=== PATIENT | female | born 1980 | race African-American/Black ===

== ENCOUNTER 2020-05-02 01:48 | Emergency (ER) | payer MEDICAID ==
[~2020-05-02] VITALS: Ht 162.6 cm; Wt 62.1 kg
[2020-05-02 01:57] VITALS: BP 112/57
[2020-05-02] MEDS ORDERED: PRED50TA PO (02:17)
[2020-05-02] MEDS ORDERED: DIPH25CA83 PO (02:17)
[2020-05-02] MEDS ORDERED: FAMO-131 PO (02:22)
[2020-05-02] MEDS ORDERED: predniSONE 10 MG TABLET ONE (02:25)
[2020-05-02] MEDS ORDERED: FAMOTIDINE (20 MG) 20 MG TABLET ONE (02:25)
[2020-05-02] MEDS ORDERED: predniSONE 20 MG TABLET ONE (02:26)
[2020-05-02] MEDS ORDERED: predniSONE 50 MG TABLET PO ONE (02:30)
[2020-05-02] MEDS ORDERED: FAMOTIDINE (20 MG) 20 MG TABLET PO ONE (02:30)
== END 2020-05-02 02:36 | disposition home or self-care (01) ==
LOC: ER 01:49
DX: R22.0 Localized swelling, mass and lump, head (principal); T36.4X5A Adverse effect of tetracyclines, initial encounter; Z88.0 Allergy status to penicillin; Z60.2 Problems related to living alone; Z79.899 Other long term (current) drug therapy; Y92.89 Other specified places as the place of occurrence of the external cause
CPT/HCPCS: 99283; J7512 ×2